=== PATIENT | female | born 1935 ===

== ENCOUNTER 2017-05-13 15:48 | Observation (INO) ==
[2017-05-13 17:04] LABS: Basophils % 0.2 % (0.0-0.8); Eosinophils # 0.1 10*3/uL (0.0-0.87); Eosinophils % 1.2 % (0.00-10.9); Hematocrit 33.9 VOL% (35.7-47.0); Hemoglobin 11.2 GM/DL (12.0-16.0); Immature Granulocytes % 0.4 %; Immature Granulocytes Absolute 0.04 #; Lymphocytes % 22.1 % (21.3-54.2); Mean Corpuscular Hemoglobin 32 PG (27-34); Mean Corpuscular Volume 95.2 FL (87-102); Mean Platelet Volume 9.1 FL (9.6-12.0); Monocytes # 0.5 10*3/uL (0.11-0.8); Monocytes % 5.8 % (1.7-12.7); Neutrophils # 6.4 10*3/uL (1.4-7.4); Neutrophils % 70.3 % (38.7-73.9); Platelet Count 185 T/CUMM (130-400); Red Blood Count 3.56 MC/CUMM (3.8-5.5); Red Cell Distribution Width 13.2 % (9.3-17.3); White Blood Count 9.1 T/CUMM (4-12)
[2017-05-13 17:18] LABS: PT Patient Result 10.2 SECS; Partial Thromboplastin Time 25.2 SECS (0-40)
[2017-05-13 17:35] LABS: Alanine Aminotransferase 23 U/L (13-56); Albumin 3.2 G/DL (3.4-5.0); Alkaline Phosphatase 76 U/L (45-117); Aspartate Amino Transferase 17 U/L (0-37); Bilirubin,Total < 0.39 MG/DL (0.2-1.0); Blood Urea Nitrogen 19 MG/DL (7-18); Calcium 8.7 MG/DL (8.5-10.1); Glucose 115 MG/DL (74-106); Osmolality,Calculated 275.8 MOS/KG (273-304); Potassium 4.3 MMOL/L (3.5-5.1); Sodium 137 MMOL/L (136-145); Total Protein 6.3 G/DL (6.4-8.3); Troponin I Only < 0.015 NG/ML (0.00-0.045)
[2017-05-13] MEDS ORDERED: LIDOCAINE 5% PATCH TRANSDERM PRN (18:23)
[2017-05-13] MEDS ORDERED: NITROGLYCERIN SL 0.4 MG TABLET SL PRN (18:23)
[2017-05-13] MEDS ORDERED: FLAVOXATE PO PRN (18:23)
[2017-05-13] MEDS ORDERED: oxyCODONE ER 10 MG TABLET PO PRN (18:23)
[2017-05-13] MEDS ORDERED: MAGNESIUM SULF RIDER 2 GM in PREMIX 1 EACH IV PRN (18:27)
[2017-05-13] MEDS ORDERED: POTASSIUM CHLORIDE 20 MEQ TABLET PO PRN (18:27)
[2017-05-13] MEDS ORDERED: ERGOCALCIFEROL 50,000 UNIT CAPSULE PO SCH (18:30)
[2017-05-13] MEDS ORDERED: DEXTROSE 50% 25 GM/50 ML VIAL IV PRN (18:32)
[2017-05-13] MEDS ORDERED: GLUCAGON 1 MG VIAL IM PRN (18:32)
[2017-05-13 19:12] LABS: Risk Ratio 2.35; VLDL CHOLESTEROL 27.4 MG/DL
[2017-05-13] MEDS ORDERED: PNEUMOCOCCAL VACCINE (13 VALENT) 0.5 ML SYRINGE IM ONE (19:42)
[2017-05-13] MEDS ORDERED: INFLUENZA VIRUS VACCINE 0.5 ML SYRINGE IM ONE (19:42)
[2017-05-13] MEDS: ENOXAPARIN 100 MG/ML SYRINGE SUBCUT SCH (22:16)
[2017-05-13] MEDS: oxyCODONE/ACETAMINOPHEN 5-325 MG TABLET PO PRN (22:16)
[2017-05-13] MEDS: PRAMIPEXOLE 0.25 MG TABLET PO SCH (22:20)
[2017-05-13] MEDS: INSULIN LISPRO 100 UNIT/ML SUBCUT SCH (22:20)
[2017-05-13] MEDS: FUROSEMIDE 40 MG TABLET PO SCH (22:20)
[2017-05-13] MEDS: PREGABALIN 50 MG CAPSULE PO SCH (22:20)
[2017-05-13] MEDS: VENLAFAXINE XR 75 MG CAPSULE PO SCH (22:20)
[2017-05-13] MEDS: tiZANidine 4 MG TABLET PO SCH (22:21)
[2017-05-13] MEDS: METOPROLOL SUCCINATE XL 100 MG TABLET PO SCH (22:21)
[2017-05-14 03:18] LABS: Albumin 3.1 G/DL (3.4-5.0); Bilirubin,Total 0.5 MG/DL (0.2-1.0); Calcium 8.4 MG/DL (8.5-10.1); Osmolality,Calculated 284.3 MOS/KG (273-304); Potassium 3.7 MMOL/L (3.5-5.1); Total Protein 5.6 G/DL (6.4-8.3)
[2017-05-14 03:22] LABS: Basophils % 0.2 % (0.0-0.8); Eosinophils # 0.2 10*3/uL (0.0-0.87); Eosinophils % 1.7 % (0.00-10.9); Hematocrit 32.4 VOL% (35.7-47.0); Hemoglobin 10.8 GM/DL (12.0-16.0); Immature Granulocytes % 0.3 %; Immature Granulocytes Absolute 0.03 #; Lymphocytes # 3.3 10*3/uL (1.4-4.0); Lymphocytes % 36.8 % (21.3-54.2); Mean Corpuscular HGB Conc 33.3 GM/DL (32-36); Mean Corpuscular Hemoglobin 32 PG (27-34); Mean Platelet Volume 9.5 FL (9.6-12.0); Monocytes # 0.8 10*3/uL (0.11-0.8); Neutrophils # 4.6 10*3/uL (1.4-7.4); Platelet Count 186 T/CUMM (130-400); Red Blood Count 3.41 MC/CUMM (3.8-5.5); Red Cell Distribution Width 13.2 % (9.3-17.3); White Blood Count 8.9 T/CUMM (4-12)
[2017-05-14] MEDS: INSULIN LISPRO 100 UNIT/ML SUBCUT SCH ×4 (07:59→21:16)
[2017-05-14] MEDS ORDERED: GUAIFENESIN PO SCH (09:00)
[2017-05-14] MEDS ORDERED: PSEUDOEPHEDRNE HCL PO SCH (09:00)
[2017-05-14] MEDS: ENOXAPARIN 100 MG/ML SYRINGE SUBCUT SCH ×2 (09:37→21:12)
[2017-05-14] MEDS: MULTIVITAMIN (CENTRUM) TABLET PO SCH (12:30)
[2017-05-14] MEDS: LOSARTAN 50 MG TABLET PO SCH (12:30)
[2017-05-14] MEDS: ISOSORBIDE MONONITRATE 30 MG TABLET PO SCH (12:31)
[2017-05-14] MEDS: DOCUSATE SODIUM 100 MG CAPSULE PO SCH (12:31)
[2017-05-14] MEDS: LACTOBACILLUS ACIDOPHILUS/BULGARICUS CAPLET PO SCH (12:31)
[2017-05-14] MEDS: FEXOFENADINE 60 MG TABLET PO SCH (12:31)
[2017-05-14] MEDS: FUROSEMIDE 40 MG TABLET PO SCH ×2 (12:32→21:10)
[2017-05-14] MEDS: ASPIRIN EC 81 MG TABLET PO SCH (12:32)
[2017-05-14] MEDS: PANTOPRAZOLE 40 MG TABLET PO SCH (12:32)
[2017-05-14] MEDS: FAMOTIDINE 20 MG TABLET PO SCH (12:32)
[2017-05-14] MEDS: ATORVASTATIN 40 MG TABLET PO SCH (12:32)
[2017-05-14] MEDS: METOPROLOL SUCCINATE XL 100 MG TABLET PO SCH ×2 (12:32→21:11)
[2017-05-14] MEDS: CLOPIDOGREL 75 MG TABLET PO SCH (12:33)
[2017-05-14] MEDS: BISACODYL 5 MG TABLET PO SCH (12:33)
[2017-05-14] MEDS: PREGABALIN 50 MG CAPSULE PO SCH ×2 (12:37→21:09)
[2017-05-14] MEDS: VENLAFAXINE XR 75 MG CAPSULE PO SCH (21:10)
[2017-05-14] MEDS: tiZANidine 4 MG TABLET PO SCH (21:10)
[2017-05-14] MEDS: PRAMIPEXOLE 0.25 MG TABLET PO SCH (21:11)
[2017-05-15] MEDS: METOPROLOL SUCCINATE XL 100 MG TABLET PO SCH (09:22)
[2017-05-15] MEDS: MULTIVITAMIN (CENTRUM) TABLET PO SCH (09:22)
[2017-05-15] MEDS: FAMOTIDINE 20 MG TABLET PO SCH (09:22)
[2017-05-15] MEDS: LOSARTAN 50 MG TABLET PO SCH (09:22)
[2017-05-15] MEDS: DOCUSATE SODIUM 100 MG CAPSULE PO SCH (09:22)
[2017-05-15] MEDS: LACTOBACILLUS ACIDOPHILUS/BULGARICUS CAPLET PO SCH (09:22)
[2017-05-15] MEDS: CLOPIDOGREL 75 MG TABLET PO SCH (09:23)
[2017-05-15] MEDS: PREGABALIN 50 MG CAPSULE PO SCH (09:23)
[2017-05-15] MEDS: PANTOPRAZOLE 40 MG TABLET PO SCH (09:23)
[2017-05-15] MEDS: ATORVASTATIN 40 MG TABLET PO SCH (09:23)
[2017-05-15] MEDS: FEXOFENADINE 60 MG TABLET PO SCH (09:23)
[2017-05-15] MEDS: ASPIRIN EC 81 MG TABLET PO SCH (09:23)
[2017-05-15] MEDS: BISACODYL 5 MG TABLET PO SCH (09:23)
[2017-05-15] MEDS: ISOSORBIDE MONONITRATE 30 MG TABLET PO SCH (09:23)
[2017-05-15] MEDS: FUROSEMIDE 40 MG TABLET PO SCH (09:23)
[2017-05-15] MEDS: ENOXAPARIN 100 MG/ML SYRINGE SUBCUT SCH (09:24)
[2017-05-15] MEDS: INSULIN LISPRO 100 UNIT/ML SUBCUT SCH ×2 (09:25→12:23)
[2017-05-15] MEDS: oxyCODONE/ACETAMINOPHEN 5-325 MG TABLET PO PRN (09:41)
[2017-05-15 12:31] VITALS: BP 134/59
== END 2017-05-15 13:15 | disposition home or self-care (01) ==
LOC: N.EDINP 15:48 → N.ED 15:48 → SUATTDRO 17:56 → N.TELES 18:49
PROVIDERS: ADMIT Family Medicine; ATTEND Internal Medicine Infectious Disease

== ENCOUNTER 2019-01-06 20:10 | Observation (INO) ==
[2019-01-06 20:53] LABS: Basophils % 0.1 % (0.0-0.8); Eosinophils % 0.3 % (0.00-10.9); Hematocrit 32.7 VOL% (35.7-47.0); Hemoglobin 10.6 GM/DL (12.0-16.0); Immature Granulocytes % 0.4 %; Immature Granulocytes Absolute 0.03 #; Lymphocytes % 14.7 % (21.3-54.2); Mean Corpuscular HGB Conc 32.4 GM/DL (32-36); Mean Corpuscular Volume 97.3 FL (87-102); Monocytes % 5.7 % (1.7-12.7); Neutrophils % 78.8 % (38.7-73.9); Platelet Count 173 T/CUMM (130-400); Red Blood Count 3.36 MC/CUMM (3.8-5.5); Red Cell Distribution Width 13.3 % (9.3-17.3)
[2019-01-06 21:01] LABS: PT Patient Result 10.7 SECS (9.6-12.2); Partial Thromboplastin Time 25.6 SECS (20.8-36.0)
[2019-01-06 21:21] LABS: Alanine Aminotransferase 30 U/L (13-56); Albumin 3.6 G/DL (3.4-5.0); Alkaline Phosphatase 60 U/L (45-117); Aspartate Amino Transferase 27 U/L (0-37); Bilirubin,Total < 0.39 MG/DL (0.2-1.0); Blood Urea Nitrogen 26 MG/DL (7-18); Calcium 8.3 MG/DL (8.5-10.1); Estimated Glom Filtration Rate 30 ML/MIN; Glucose 108 MG/DL (74-106); Osmolality,Calculated 280.7 MOS/KG (273-304)
[2019-01-06] MEDS ORDERED: ALUM/MAG/SIMETH/LIDO VISC 1:1 30 ML BOTTLE PO STA (21:29)
[2019-01-07] MEDS ORDERED: oxyCODONE/ACETAMINOPHEN 5-325 MG TABLET PO STA (00:36)
[2019-01-07] MEDS ORDERED: ALUM/MAG/SIMETH/LIDO VISC 1:1 30 ML BOTTLE PO STA (00:49)
[2019-01-07] MEDS ORDERED: oxyCODONE/ACETAMINOPHEN 5-325 MG TABLET PO PRN (00:57)
[2019-01-07] MEDS ORDERED: tiZANidine 4 MG TABLET PO PRN (01:25)
[2019-01-07] MEDS ORDERED: GLUCAGON 1 MG VIAL IM PRN (01:25)
[2019-01-07] MEDS ORDERED: DEXTROSE 50% 25 GM/50 ML VIAL IV PRN (01:25)
[2019-01-07] MEDS ORDERED: cefTRIAXone 1,000 MG in SYRINGE 1 EACH IV SCH (02:00)
[2019-01-07] MEDS ORDERED: MAGNESIUM SULF RIDER 4 GM in PREMIX 1 EACH IV ONE (02:35)
[2019-01-07] MEDS ORDERED: SODIUM CHLORIDE 0.9% 1,000 ML IV SCH (03:00)
[2019-01-07 04:46] LABS: Basophils % 0.3 % (0.0-0.8); Eosinophils # 0.1 10*3/uL (0.0-0.87); Eosinophils % 0.7 % (0.00-10.9); Hematocrit 32.7 VOL% (35.7-47.0); Hemoglobin 10.7 GM/DL (12.0-16.0); Immature Granulocytes % 0.4 %; Immature Granulocytes Absolute 0.03 #; Lymphocytes # 2.3 10*3/uL (1.4-4.0); Lymphocytes % 31.2 % (21.3-54.2); Mean Corpuscular HGB Conc 32.7 GM/DL (32-36); Mean Corpuscular Volume 96.7 FL (87-102); Mean Platelet Volume 10.1 FL (9.6-12.0); Monocytes % 9.3 % (1.7-12.7); Neutrophils % 58.1 % (38.7-73.9); Platelet Count 177 T/CUMM (130-400); Red Blood Count 3.38 MC/CUMM (3.8-5.5); Red Cell Distribution Width 13.4 % (9.3-17.3); White Blood Count 7.3 T/CUMM (4-12)
[2019-01-07 05:10] LABS: Troponin I < 0.015 NG/ML (0.00-0.045)
[2019-01-07 05:15] LABS: Albumin 3.6 G/DL (3.4-5.0); Bilirubin,Total 0.6 MG/DL (0.2-1.0); Calcium 8.6 MG/DL (8.5-10.1); Osmolality,Calculated 274.8 MOS/KG (273-304); Thyroid Stimulating Hormone 2.26 uIU/ml (0.358-3.74); Total Protein 6.4 G/DL (6.4-8.3)
[2019-01-07] MEDS ORDERED: HYDROXYCHLOROQUINE 200 MG TABLET PO SCH ×2 (09:00→09:30)
[2019-01-07] MEDS ORDERED: METOPROLOL SUCCINATE XL 100 MG TABLET PO SCH ×2 (09:00→09:30)
[2019-01-07] MEDS ORDERED: PANTOPRAZOLE 40 MG TABLET PO SCH ×2 (09:00→09:30)
[2019-01-07] MEDS ORDERED: ASPIRIN EC 81 MG TABLET PO SCH (09:00)
[2019-01-07] MEDS ORDERED: busPIRone 10 MG TABLET PO SCH ×2 (09:00→15:00)
[2019-01-07] MEDS ORDERED: LACTOBACILLUS RHAMNOSUS GG CAPSULE PO SCH (09:00)
[2019-01-07] MEDS ORDERED: ONDANSETRON 4 MG TABLET PO PRN (09:10)
[2019-01-07] MEDS ORDERED: NITROGLYCERIN SL 0.4 MG TABLET SL PRN (09:10)
[2019-01-07] MEDS ORDERED: LIDOCAINE 5% PATCH TRANSDERM PRN (09:10)
[2019-01-07] MEDS ORDERED: CALCIUM (CARBONATE)/VITAMIN D 500 MG-200 UNIT TABLET PO SCH (09:15)
[2019-01-07] MEDS ORDERED: LOSARTAN 50 MG TABLET PO SCH (09:15)
[2019-01-07] MEDS ORDERED: DEXTROMETHORPHAN GUAIFENESIN PO SCH (09:15)
[2019-01-07] MEDS ORDERED: CYANOCOBALAMIN 1000 MCG/1 ML VIAL SUBCUT SCH (09:30)
[2019-01-07] MEDS ORDERED: BISACODYL 5 MG TABLET PO SCH (09:30)
[2019-01-07] MEDS ORDERED: MULTIVITAMIN (CENTRUM) TABLET PO SCH (09:30)
[2019-01-07] MEDS ORDERED: FUROSEMIDE 40 MG TABLET PO SCH (09:30)
[2019-01-07] MEDS ORDERED: SULFAMETHOX/TRIMETHOPRIM 800-160 MG TABLET PO SCH (09:30)
[2019-01-07] MEDS ORDERED: FEXOFENADINE 180 MG TABLET PO SCH (09:30)
[2019-01-07] MEDS ORDERED: PREGABALIN 50 MG CAPSULE PO SCH (09:30)
[2019-01-07] MEDS ORDERED: ISOSORBIDE MONONITRATE 30 MG TABLET PO SCH (09:30)
[2019-01-07] MEDS ORDERED: CLOPIDOGREL 75 MG TABLET PO SCH (09:30)
[2019-01-07] MEDS ORDERED: predniSONE 5 MG TABLET PO SCH (09:30)
[2019-01-07 11:48] LABS: Apearance,Urine CLEAR (Clear); Bacteria,Urine Occasional /HPF (Few); Bilirubin,Urine Negative (Negative); Blood, Urine Negative (Negative); Glucose,Urine (UA) Negative (Negative); Ketones,Urine Negative (Negative); Mucus,Urine Occasional /LPF (Occasional); Nitrite,Urine Negative (Negative); Protein,Urine Negative; RBC,Urine 3 /HPF (0-4); Squamous Epithelial Cell,Urine Occasional /HPF (0-10); Urine Color Yellow (Yellow); Urine Urobilinogen < 2.0 EU/DL (0.2-1.0); WBC,Urine 1 /HPF (0-6)
[2019-01-07 13:43] VITALS: BP 142/126
[2019-01-07] MEDS ORDERED: oxyCODONE/ACETAMINOPHEN 5-325 MG TABLET PO SCH (14:00)
[2019-01-07] MEDS ORDERED: ATORVASTATIN 40 MG TABLET PO SCH ×2 (18:00→21:00)
[2019-01-07] MEDS ORDERED: DOCUSATE SODIUM 100 MG CAPSULE PO SCH (18:00)
[2019-01-07] MEDS ORDERED: PRAMIPEXOLE 0.25 MG TABLET PO SCH (21:00)
[2019-01-07] MEDS ORDERED: VENLAFAXINE XR 75 MG CAPSULE PO SCH (21:00)
[2019-01-08] MEDS ORDERED: MAGNESIUM CHLORIDE 64 MG TABLET PO SCH (09:00)
[2019-01-12] MEDS ORDERED: ERGOCALCIFEROL 50,000 UNIT CAPSULE PO SCH (09:10)
== END 2019-01-07 17:00 | disposition home health service (06) ==
LOC: EDUNIT# → N.ED 20:10 → N.EDINP 20:10 → SUATTDRO 01-07 00:43 → N.2W 01-07 01:12
PROVIDERS: ADMIT Internal Medicine; ATTEND Hospitalist

== ENCOUNTER 2019-04-03 18:10 | Observation (INO) ==
[2019-04-03] MEDS ORDERED: MORPHINE 4 MG/1 ML VIAL IV STA ×2 (18:59→19:49)
[2019-04-03] MEDS ORDERED: ONDANSETRON 4 MG/2 ML VIAL IV STA (18:59)
[2019-04-03] MEDS ORDERED: ASPIRIN 325 MG TABLET PO STA (18:59)
[2019-04-03 19:08] LABS: Basophils # 0.1 10*3/uL (0.0-0.2); Basophils % 0.6 % (0.0-0.8); Eosinophils # 0.1 10*3/uL (0.0-0.87); Eosinophils % 1.7 % (0.00-10.9); Hematocrit 34.9 VOL% (35.7-47.0); Hemoglobin 11.4 GM/DL (12.0-16.0); Immature Granulocytes % 0.2 %; Immature Granulocytes Absolute 0.02 #; Lymphocytes # 1.4 10*3/uL (1.4-4.0); Mean Corpuscular HGB Conc 32.7 GM/DL (32-36); Mean Corpuscular Volume 95.6 FL (87-102); Neutrophils % 73.5 % (38.7-73.9); Platelet Count 185 T/CUMM (130-400); Red Blood Count 3.65 MC/CUMM (3.8-5.5); Red Cell Distribution Width 13.4 % (9.3-17.3); White Blood Count 8.3 T/CUMM (4-12)
[2019-04-03 19:21] LABS: PT Patient Result 10.4 SECS (9.6-12.2)
[2019-04-03 19:23] LABS: Albumin 3.4 G/DL (3.4-5.0); Bilirubin,Total 0.4 MG/DL (0.2-1.0); Calcium 8.9 MG/DL (8.5-10.1); Osmolality,Calculated 277.8 MOS/KG (273-304); Total Protein 6.7 G/DL (6.4-8.3)
[2019-04-03 19:28] LABS: Apearance,Urine CLOUDY (Clear); Bacteria,Urine Many /HPF (Few); Bilirubin,Urine Negative (Negative); Blood, Urine Small mg/dL (Negative); Glucose,Urine (UA) Negative (Negative); Hyaline Casts,Urine 21 /LPF (0-3); Ketones,Urine Negative (Negative); Mucus,Urine Occasional /LPF (Occasional); Nitrite,Urine Positive (Negative); Protein,Urine Negative; RBC,Urine 11 /HPF (0-4); Squamous Epithelial Cell,Urine Occasional /HPF (0-10); Transitional Epi Cells,Urine Occasional /HPF (<1); Urine Color Yellow (Yellow); Urine Specific Gravity 1.008 (1.001-1.035); Urine Urobilinogen < 2.0 EU/DL (0.2-1.0); WBC,Urine 438 /HPF (0-6)
[2019-04-03] MEDS ORDERED: MAGNESIUM SULF RIDER 2 GM in PREMIX 1 EACH IV STA (19:32)
[2019-04-03] MEDS ORDERED: cefTRIAXone 1,000 MG in SODIUM CHLORIDE 0.9% 100 ML IV STA (19:32)
[2019-04-03] MEDS ORDERED: MAGNESIUM SULF RIDER 50 ML IV ONE (19:33)
[2019-04-03] MEDS ORDERED: cefTRIAXone 1,000 MG VIAL ONE (19:33)
[2019-04-03] MEDS ORDERED: MAGNESIUM SULF RIDER 2 GM in PREMIX 1 EACH IV PRN (22:02)
[2019-04-03] MEDS ORDERED: DOCUSATE SODIUM 100 MG CAPSULE PO PRN (22:02)
[2019-04-03] MEDS ORDERED: MAGNESIUM SULF RIDER 4 GM in PREMIX 1 EACH IV PRN (22:02)
[2019-04-03] MEDS ORDERED: ONDANSETRON 4 MG/2 ML VIAL IV PRN (22:02)
[2019-04-03] MEDS ORDERED: ACETAMINOPHEN 325 MG TABLET PO PRN (22:02)
[2019-04-03] MEDS ORDERED: NITROGLYCERIN SL 0.4 MG TABLET SL PRN (22:02)
[2019-04-03] MEDS ORDERED: SODIUM CHLORIDE 0.9% 1,000 ML IV SCH (22:02)
[2019-04-03] MEDS: ENOXAPARIN 40 MG/0.4 ML SYRINGE SUBCUT SCH (22:46)
[2019-04-03] MEDS: MORPHINE 4 MG/1 ML VIAL IV PRN (23:39)
[2019-04-04 01:40] LABS: Basophils % 0.4 % (0.0-0.8); Eosinophils # 0.1 10*3/uL (0.0-0.87); Eosinophils % 1.7 % (0.00-10.9); Hematocrit 33.6 VOL% (35.7-47.0); Hemoglobin 11.1 GM/DL (12.0-16.0); Immature Granulocytes % 0.3 %; Immature Granulocytes Absolute 0.02 #; Lymphocytes # 2.1 10*3/uL (1.4-4.0); Lymphocytes % 29.9 % (21.3-54.2); Mean Platelet Volume 9.7 FL (9.6-12.0); Monocytes % 8.1 % (1.7-12.7); Neutrophils % 59.6 % (38.7-73.9); Platelet Count 176 T/CUMM (130-400); Red Cell Distribution Width 13.5 % (9.3-17.3); White Blood Count 7.1 T/CUMM (4-12)
[2019-04-04 02:20] LABS: Calcium 8.8 MG/DL (8.5-10.1); Osmolality,Calculated 281.7 MOS/KG (273-304); Risk Ratio 2.6; Thyroid Stimulating Hormone 1.32 uIU/ml (0.358-3.74)
[2019-04-04] MEDS: MORPHINE 4 MG/1 ML VIAL IV PRN (05:13)
[2019-04-04] MEDS: PANTOPRAZOLE 40 MG TABLET PO SCH ×2 (07:51→09:11)
[2019-04-04] MEDS: METOPROLOL SUCCINATE XL 100 MG TABLET PO SCH ×2 (12:47→20:23)
[2019-04-04] MEDS: ASPIRIN EC 81 MG TABLET PO SCH (12:47)
[2019-04-04] MEDS: LOSARTAN 50 MG TABLET PO SCH (12:48)
[2019-04-04] MEDS: ISOSORBIDE MONONITRATE 30 MG TABLET PO SCH (12:48)
[2019-04-04] MEDS: FUROSEMIDE 40 MG TABLET PO SCH (12:48)
[2019-04-04] MEDS: LIDOCAINE 5% PATCH TRANSDERM SCH (17:03)
[2019-04-04] MEDS: ATORVASTATIN 40 MG TABLET PO SCH (18:30)
[2019-04-04] MEDS ORDERED: tiZANidine 4 MG TABLET PO PRN (18:47)
[2019-04-04] MEDS: OMEGA 3 ACID ETHYL ESTERS 1 GM CAPSULE PO SCH (20:23)
[2019-04-04] MEDS: PREGABALIN 50 MG CAPSULE PO SCH (20:23)
[2019-04-04] MEDS: VENLAFAXINE 100 MG TABLET PO SCH (20:23)
[2019-04-04] MEDS: ENOXAPARIN 40 MG/0.4 ML SYRINGE SUBCUT SCH (20:23)
[2019-04-04] MEDS: PRAMIPEXOLE 0.25 MG TABLET PO SCH (20:24)
[2019-04-04] MEDS ORDERED: cefTRIAXone 1,000 MG in SYRINGE 1 EACH IV SCH (21:00)
[2019-04-05] MEDS: PREGABALIN 50 MG CAPSULE PO SCH ×2 (09:03→20:43)
[2019-04-05] MEDS: CLOPIDOGREL 75 MG TABLET PO SCH (09:04)
[2019-04-05] MEDS: ISOSORBIDE MONONITRATE 30 MG TABLET PO SCH (09:04)
[2019-04-05] MEDS: METOPROLOL SUCCINATE XL 100 MG TABLET PO SCH ×2 (09:04→20:43)
[2019-04-05] MEDS: LOSARTAN 50 MG TABLET PO SCH (09:04)
[2019-04-05] MEDS: ASPIRIN EC 81 MG TABLET PO SCH (09:05)
[2019-04-05] MEDS: OMEGA 3 ACID ETHYL ESTERS 1 GM CAPSULE PO SCH ×2 (09:05→20:43)
[2019-04-05] MEDS: FUROSEMIDE 40 MG TABLET PO SCH (09:05)
[2019-04-05] MEDS: PANTOPRAZOLE 40 MG TABLET PO SCH ×3 (09:05→20:43)
[2019-04-05] MEDS: LIDOCAINE 5% PATCH TRANSDERM SCH (11:41)
[2019-04-05] MEDS ORDERED: oxyCODONE/ACETAMINOPHEN 5-325 MG TABLET PO PRN (11:47)
[2019-04-05] MEDS: MORPHINE 4 MG/1 ML VIAL IV PRN (12:16)
[2019-04-05] MEDS ORDERED: LIDOCAINE 5% PATCH TRANSDERM PRN (12:27)
[2019-04-05] MEDS: KETOROLAC 15 MG/1 ML VIAL IV SCH ×2 (14:29→20:43)
[2019-04-05] MEDS: LEVOFLOXACIN 250 MG TABLET PO SCH (16:55)
[2019-04-05] MEDS: ATORVASTATIN 40 MG TABLET PO SCH (16:59)
[2019-04-05] MEDS: PRAMIPEXOLE 0.25 MG TABLET PO SCH (20:42)
[2019-04-05] MEDS: ENOXAPARIN 40 MG/0.4 ML SYRINGE SUBCUT SCH (20:42)
[2019-04-05] MEDS: HYDROXYCHLOROQUINE 200 MG TABLET PO SCH (20:43)
[2019-04-05] MEDS: VENLAFAXINE 100 MG TABLET PO SCH (20:43)
[2019-04-06] MEDS: KETOROLAC 15 MG/1 ML VIAL IV SCH ×2 (04:10→12:10)
[2019-04-06] MEDS ORDERED: predniSONE 5 MG TABLET PO SCH (07:30)
[2019-04-06] MEDS ORDERED: BETAMETH SODIUM PHOS/ACETATE 30 MG/5 ML VIAL INTRAARTIC ONE (07:32)
[2019-04-06] MEDS ORDERED: BUPIVACAINE 0.5% 50 ML VIAL MISC INJ ONE (07:33)
[2019-04-06] MEDS: CLOPIDOGREL 75 MG TABLET PO SCH (08:57)
[2019-04-06] MEDS: ASPIRIN EC 81 MG TABLET PO SCH (08:57)
[2019-04-06] MEDS: OMEGA 3 ACID ETHYL ESTERS 1 GM CAPSULE PO SCH (08:57)
[2019-04-06] MEDS: HYDROXYCHLOROQUINE 200 MG TABLET PO SCH (08:57)
[2019-04-06] MEDS: FUROSEMIDE 40 MG TABLET PO SCH (08:57)
[2019-04-06] MEDS: ISOSORBIDE MONONITRATE 30 MG TABLET PO SCH (08:57)
[2019-04-06] MEDS: LIDOCAINE 5% PATCH TRANSDERM SCH (08:58)
[2019-04-06] MEDS: LOSARTAN 50 MG TABLET PO SCH (08:58)
[2019-04-06] MEDS: LEVOFLOXACIN 250 MG TABLET PO SCH (08:58)
[2019-04-06] MEDS: PREGABALIN 50 MG CAPSULE PO SCH (08:58)
[2019-04-06] MEDS: METOPROLOL SUCCINATE XL 100 MG TABLET PO SCH (08:58)
[2019-04-06] MEDS: PANTOPRAZOLE 40 MG TABLET PO SCH ×2 (09:01)
[2019-04-06] MEDS: MORPHINE 4 MG/1 ML VIAL IV PRN (09:06)
[2019-04-06] MEDS: ATORVASTATIN 40 MG TABLET PO SCH (17:20)
[2019-04-06 18:18] VITALS: BP 131/55
== END 2019-04-06 18:44 | disposition home health service (06) ==
LOC: EDBD → EDUNIT# → N.ED 18:10 → N.EDINP 18:10 → SUATTDRO 20:24 → N.3E 21:19
PROVIDERS: ADMIT Hospitalist; ATTEND Internal Medicine

== ENCOUNTER 2019-06-25 11:44 | Inpatient (IN) ==
[2019-06-25 12:41] LABS: Basophils # 0.1 10*3/uL (0.0-0.2); Basophils % 0.5 % (0.0-0.8); Eosinophils # 0.3 10*3/uL (0.0-0.87); Eosinophils % 2.8 % (0.00-10.9); Hematocrit 34.9 VOL% (35.7-47.0); Immature Granulocytes % 0.3 %; Immature Granulocytes Absolute 0.03 #; Lymphocytes % 21.2 % (21.3-54.2); Mean Corpuscular HGB Conc 31.5 GM/DL (32-36); Mean Corpuscular Volume 96.1 FL (87-102); Mean Platelet Volume 9.6 FL (9.6-12.0); Monocytes % 8.1 % (1.7-12.7); Neutrophils % 67.1 % (38.7-73.9); Platelet Count 229 T/CUMM (130-400); Red Blood Count 3.63 MC/CUMM (3.8-5.5); White Blood Count 9.4 T/CUMM (4-12)
[2019-06-25 12:53] LABS: PT Patient Result 10.9 SECS (9.8-11.9)
[2019-06-25 12:55] LABS: Albumin 3.4 G/DL (3.4-5.0); Bilirubin,Total 0.5 MG/DL (0.2-1.0); Calcium 9.7 MG/DL (8.5-10.1); Osmolality,Calculated 279.5 MOS/KG (273-304); Total Protein 7.2 G/DL (6.4-8.3)
[2019-06-25] MEDS ORDERED: MORPHINE 4 MG/1 ML VIAL ONE (13:44)
[2019-06-25] MEDS ORDERED: MORPHINE 4 MG/1 ML VIAL IV STA (13:47)
[2019-06-25] MEDS ORDERED: LIDOCAINE 5% PATCH TRANSDERM PRN (14:54)
[2019-06-25] MEDS ORDERED: NITROGLYCERIN SL 0.4 MG TABLET SL PRN (14:54)
[2019-06-25] MEDS ORDERED: tiZANidine 4 MG TABLET PO PRN (14:54)
[2019-06-25] MEDS ORDERED: ONDANSETRON 4 MG TABLET PO PRN (14:54)
[2019-06-25] MEDS ORDERED: predniSONE 5 MG TABLET PO PRN (14:54)
[2019-06-25] MEDS ORDERED: POLYETHYLENE GLYCOL POWDER 17 GM PACK PO PRN (14:54)
[2019-06-25] MEDS ORDERED: CYANOCOBALAMIN 1000 MCG/1 ML VIAL IM SCH (15:00)
[2019-06-25] MEDS ORDERED: GLUCAGON 1 MG VIAL IM PRN (15:20)
[2019-06-25] MEDS ORDERED: DEXTROSE 10% 250 ML BAG IV PRN (15:20)
[2019-06-25] MEDS ORDERED: ONDANSETRON 4 MG/2 ML VIAL IV PRN (15:20)
[2019-06-25] MEDS ORDERED: ACETAMINOPHEN 325 MG TABLET PO PRN (15:20)
[2019-06-25] MEDS ORDERED: ENOXAPARIN 30 MG/0.3 ML SYRINGE SUBCUT SCH (15:30)
[2019-06-25] MEDS: DOCUSATE SODIUM 100 MG CAPSULE PO SCH (17:59)
[2019-06-25] MEDS: INDOMETHACIN 25 MG CAPSULE PO SCH ×2 (17:59→20:37)
[2019-06-25] MEDS: ENOXAPARIN 100 MG/ML SYRINGE SUBCUT SCH (18:00)
[2019-06-25] MEDS: ATORVASTATIN 40 MG TABLET PO SCH (18:00)
[2019-06-25] MEDS: VENLAFAXINE 100 MG TABLET PO SCH (20:36)
[2019-06-25] MEDS: PRAMIPEXOLE 0.25 MG TABLET PO SCH (20:37)
[2019-06-25] MEDS: METOPROLOL SUCCINATE XL 100 MG TABLET PO SCH (20:37)
[2019-06-25] MEDS: PANTOPRAZOLE 40 MG TABLET PO SCH (20:37)
[2019-06-25] MEDS: PREGABALIN 75 MG CAPSULE PO SCH (20:37)
[2019-06-25] MEDS: CALCIUM (CARBONATE)/VITAMIN D 600 MG-400 UNIT TABLET PO SCH (20:37)
[2019-06-26] MEDS: oxyCODONE/ACETAMINOPHEN 5-325 MG TABLET PO PRN ×2 (00:36→21:02)
[2019-06-26] MEDS: ENOXAPARIN 100 MG/ML SYRINGE SUBCUT SCH ×2 (03:58→15:39)
[2019-06-26 06:31] LABS: Basophils % 0.5 % (0.0-0.8); Eosinophils # 0.2 10*3/uL (0.0-0.87); Hematocrit 34.2 VOL% (35.7-47.0); Hemoglobin 10.5 GM/DL (12.0-16.0); Immature Granulocytes % 0.5 %; Immature Granulocytes Absolute 0.03 #; Lymphocytes # 1.8 10*3/uL (1.4-4.0); Lymphocytes % 32.7 % (21.3-54.2); Mean Corpuscular HGB Conc 30.7 GM/DL (32-36); Mean Corpuscular Volume 100.9 FL (87-102); Mean Platelet Volume 9.7 FL (9.6-12.0); Neutrophils % 51.3 % (38.7-73.9); Platelet Count 231 T/CUMM (130-400); Red Blood Count 3.39 MC/CUMM (3.8-5.5); Red Cell Distribution Width 14.1 % (9.3-17.3); White Blood Count 5.6 T/CUMM (4-12)
[2019-06-26 06:49] LABS: Bilirubin,Total 0.5 MG/DL (0.2-1.0); Calcium 9.3 MG/DL (8.5-10.1); Osmolality,Calculated 276.7 MOS/KG (273-304); Total Protein 6.4 G/DL (6.4-8.3)
[2019-06-26] MEDS: FUROSEMIDE 40 MG/4 ML VIAL IV SCH ×2 (08:46→17:28)
[2019-06-26] MEDS ORDERED: FUROSEMIDE 40 MG TABLET PO SCH (09:00)
[2019-06-26] MEDS ORDERED: ISOSORBIDE MONONITRATE 30 MG TABLET PO SCH (09:00)
[2019-06-26] MEDS: PREGABALIN 75 MG CAPSULE PO SCH ×2 (09:25→21:03)
[2019-06-26] MEDS: LOSARTAN 50 MG TABLET PO SCH (09:25)
[2019-06-26] MEDS: CLOPIDOGREL 75 MG TABLET PO SCH (09:25)
[2019-06-26] MEDS: guaiFENesin/DM ER 600-30 MG TABLET PO SCH (09:25)
[2019-06-26] MEDS: MULTIVITAMIN (CENTRUM) TABLET PO SCH (09:25)
[2019-06-26] MEDS: ISOSORBIDE MONONITRATE 60 MG TABLET PO SCH (09:25)
[2019-06-26] MEDS: LACTOBACILLUS RHAMNOSUS GG CAPSULE PO SCH (09:25)
[2019-06-26] MEDS: CALCIUM (CARBONATE)/VITAMIN D 600 MG-400 UNIT TABLET PO SCH ×2 (09:26→21:04)
[2019-06-26] MEDS: DILTIAZEM CD 120 MG CAPSULE PO SCH ×2 (09:26→21:04)
[2019-06-26] MEDS: INDOMETHACIN 25 MG CAPSULE PO SCH ×3 (09:26→21:04)
[2019-06-26] MEDS: METOPROLOL SUCCINATE XL 100 MG TABLET PO SCH ×2 (09:26→21:04)
[2019-06-26] MEDS: FEXOFENADINE 180 MG TABLET PO SCH (09:26)
[2019-06-26] MEDS: ASPIRIN EC 81 MG TABLET PO SCH (09:26)
[2019-06-26] MEDS: PANTOPRAZOLE 40 MG TABLET PO SCH ×2 (09:28→21:04)
[2019-06-26] MEDS: DOCUSATE SODIUM 100 MG CAPSULE PO SCH (17:31)
[2019-06-26] MEDS: ATORVASTATIN 40 MG TABLET PO SCH (17:31)
[2019-06-26] MEDS: PRAMIPEXOLE 0.25 MG TABLET PO SCH (21:03)
[2019-06-26] MEDS: VENLAFAXINE 100 MG TABLET PO SCH (21:04)
[2019-06-27] MEDS: ENOXAPARIN 100 MG/ML SYRINGE SUBCUT SCH (03:28)
[2019-06-27 07:21] LABS: Basophils % 0.5 % (0.0-0.8); Eosinophils # 0.2 10*3/uL (0.0-0.87); Eosinophils % 3.2 % (0.00-10.9); Hematocrit 33.1 VOL% (35.7-47.0); Hemoglobin 10.4 GM/DL (12.0-16.0); Immature Granulocytes % 0.5 %; Immature Granulocytes Absolute 0.03 #; Lymphocytes # 1.7 10*3/uL (1.4-4.0); Lymphocytes % 25.5 % (21.3-54.2); Mean Corpuscular HGB Conc 31.4 GM/DL (32-36); Mean Corpuscular Volume 97.1 FL (87-102); Mean Platelet Volume 9.8 FL (9.6-12.0); Monocytes % 8.8 % (1.7-12.7); Neutrophils % 61.5 % (38.7-73.9); Platelet Count 222 T/CUMM (130-400); Red Blood Count 3.41 MC/CUMM (3.8-5.5); Red Cell Distribution Width 14.2 % (9.3-17.3); White Blood Count 6.6 T/CUMM (4-12)
[2019-06-27 07:51] LABS: Calcium 9.3 MG/DL (8.5-10.1); Osmolality,Calculated 277.8 MOS/KG (273-304)
[2019-06-27] MEDS: ISOSORBIDE MONONITRATE 60 MG TABLET PO SCH (08:59)
[2019-06-27] MEDS: LACTOBACILLUS RHAMNOSUS GG CAPSULE PO SCH (08:59)
[2019-06-27] MEDS: MULTIVITAMIN (CENTRUM) TABLET PO SCH (08:59)
[2019-06-27] MEDS: guaiFENesin/DM ER 600-30 MG TABLET PO SCH (09:00)
[2019-06-27] MEDS: DILTIAZEM CD 120 MG CAPSULE PO SCH ×2 (09:00→21:04)
[2019-06-27] MEDS: METOPROLOL SUCCINATE XL 100 MG TABLET PO SCH ×2 (09:00→21:04)
[2019-06-27] MEDS: PANTOPRAZOLE 40 MG TABLET PO SCH ×2 (09:00→21:04)
[2019-06-27] MEDS: ASPIRIN EC 81 MG TABLET PO SCH (09:00)
[2019-06-27] MEDS: FEXOFENADINE 180 MG TABLET PO SCH (09:00)
[2019-06-27] MEDS: CALCIUM (CARBONATE)/VITAMIN D 600 MG-400 UNIT TABLET PO SCH ×2 (09:00→21:04)
[2019-06-27] MEDS: LOSARTAN 50 MG TABLET PO SCH (09:00)
[2019-06-27] MEDS: INDOMETHACIN 25 MG CAPSULE PO SCH ×3 (09:01→21:04)
[2019-06-27] MEDS: PREGABALIN 75 MG CAPSULE PO SCH ×2 (09:01→21:04)
[2019-06-27] MEDS: CLOPIDOGREL 75 MG TABLET PO SCH (09:01)
[2019-06-27] MEDS: FUROSEMIDE 40 MG/4 ML VIAL IV SCH (09:01)
[2019-06-27] MEDS: DOCUSATE SODIUM 100 MG CAPSULE PO SCH (17:34)
[2019-06-27] MEDS: ATORVASTATIN 40 MG TABLET PO SCH (17:34)
[2019-06-27] MEDS: VENLAFAXINE 100 MG TABLET PO SCH (21:04)
[2019-06-27] MEDS: PRAMIPEXOLE 0.25 MG TABLET PO SCH (21:04)
[2019-06-28 06:19] LABS: Calcium 9.6 MG/DL (8.5-10.1); Osmolality,Calculated 279.8 MOS/KG (273-304)
[2019-06-28] MEDS: SODIUM CHLORIDE 0.9% 1,000 ML IV SCH (08:50)
[2019-06-28] MEDS: ISOSORBIDE MONONITRATE 60 MG TABLET PO SCH (08:51)
[2019-06-28] MEDS: PANTOPRAZOLE 40 MG TABLET PO SCH ×2 (08:51→21:05)
[2019-06-28] MEDS: CALCIUM (CARBONATE)/VITAMIN D 600 MG-400 UNIT TABLET PO SCH ×2 (08:51→21:05)
[2019-06-28] MEDS: PREGABALIN 75 MG CAPSULE PO SCH ×2 (08:51→21:05)
[2019-06-28] MEDS: oxyCODONE/ACETAMINOPHEN 5-325 MG TABLET PO PRN ×2 (08:51→21:04)
[2019-06-28] MEDS: MULTIVITAMIN (CENTRUM) TABLET PO SCH (08:51)
[2019-06-28] MEDS: ASPIRIN EC 81 MG TABLET PO SCH (08:51)
[2019-06-28] MEDS: FEXOFENADINE 180 MG TABLET PO SCH (08:52)
[2019-06-28] MEDS: CLOPIDOGREL 75 MG TABLET PO SCH (08:52)
[2019-06-28] MEDS: ENOXAPARIN 30 MG/0.3 ML SYRINGE SUBCUT SCH (08:52)
[2019-06-28] MEDS: DILTIAZEM CD 120 MG CAPSULE PO SCH ×2 (08:52→21:04)
[2019-06-28] MEDS: LACTOBACILLUS RHAMNOSUS GG CAPSULE PO SCH (08:52)
[2019-06-28] MEDS: guaiFENesin/DM ER 600-30 MG TABLET PO SCH (08:52)
[2019-06-28] MEDS: METOPROLOL SUCCINATE XL 100 MG TABLET PO SCH ×2 (08:52→21:05)
[2019-06-28] MEDS: DOCUSATE SODIUM 100 MG CAPSULE PO SCH (17:57)
[2019-06-28] MEDS: ATORVASTATIN 40 MG TABLET PO SCH (17:57)
[2019-06-28] MEDS: PRAMIPEXOLE 0.25 MG TABLET PO SCH (21:04)
[2019-06-28] MEDS: VENLAFAXINE 100 MG TABLET PO SCH (21:05)
[2019-06-29] MEDS: SODIUM CHLORIDE 0.9% 1,000 ML IV SCH ×2 (04:01→07:14)
[2019-06-29 07:54] LABS: Calcium 9.8 MG/DL (8.5-10.1); Osmolality,Calculated 278.7 MOS/KG (273-304)
[2019-06-29] MEDS ORDERED: ERGOCALCIFEROL 50,000 UNIT CAPSULE PO SCH (09:00)
[2019-06-29] MEDS ORDERED: TUBERCULIN SKIN TEST 0.1 ML SYRINGE INTRADERM ONE (09:16)
[2019-06-29] MEDS: guaiFENesin/DM ER 600-30 MG TABLET PO SCH (09:22)
[2019-06-29] MEDS: MULTIVITAMIN (CENTRUM) TABLET PO SCH (09:22)
[2019-06-29] MEDS: DILTIAZEM CD 120 MG CAPSULE PO SCH (09:22)
[2019-06-29] MEDS: ASPIRIN EC 81 MG TABLET PO SCH (09:22)
[2019-06-29] MEDS: PREGABALIN 75 MG CAPSULE PO SCH (09:23)
[2019-06-29] MEDS: oxyCODONE/ACETAMINOPHEN 5-325 MG TABLET PO PRN (09:23)
[2019-06-29] MEDS: METOPROLOL SUCCINATE XL 100 MG TABLET PO SCH (09:24)
[2019-06-29] MEDS: CALCIUM (CARBONATE)/VITAMIN D 600 MG-400 UNIT TABLET PO SCH (09:24)
[2019-06-29] MEDS: ENOXAPARIN 30 MG/0.3 ML SYRINGE SUBCUT SCH (09:24)
[2019-06-29] MEDS: CLOPIDOGREL 75 MG TABLET PO SCH (09:24)
[2019-06-29] MEDS: ISOSORBIDE MONONITRATE 60 MG TABLET PO SCH (09:24)
[2019-06-29] MEDS: PANTOPRAZOLE 40 MG TABLET PO SCH (09:24)
[2019-06-29] MEDS: FEXOFENADINE 180 MG TABLET PO SCH (09:24)
[2019-06-29] MEDS: LACTOBACILLUS RHAMNOSUS GG CAPSULE PO SCH (09:24)
[2019-06-29] MEDS ORDERED: AZITHROMYCIN 250 MG TABLET PO ONE (11:18)
[2019-06-29 13:51] VITALS: BP 124/65
[2019-06-30] MEDS ORDERED: AZITHROMYCIN 250 MG TABLET PO SCH (09:00)
== END 2019-06-29 14:46 | DRG 291 ==
LOC: EDUNIT# → EDBD → N.ED 11:44 → N.EDINP 11:44 → N.TELEN 15:51 → SUATTDRO 06-27 15:24
PROVIDERS: ADMIT Internal Medicine; ATTEND Internal Medicine

== ENCOUNTER 2019-07-03 18:29 | Inpatient (IN) ==
[2019-07-03] MEDS ORDERED: DOPamine 800 MG/250 ML PREMIX IV ONE (19:00)
[2019-07-03 19:25] LABS: Basophils % 0.1 % (0.0-0.8); Eosinophils % 0.1 % (0.00-10.9); Hemoglobin 9.6 GM/DL (12.0-16.0); Immature Granulocytes % 0.5 %; Immature Granulocytes Absolute 0.04 #; Lymphocytes # 1.1 10*3/uL (1.4-4.0); Lymphocytes % 13.3 % (21.3-54.2); Mean Corpuscular Volume 97.4 FL (87-102); Mean Platelet Volume 10.5 FL (9.6-12.0); Monocytes % 6.6 % (1.7-12.7); NRBC # 0.02 10*3/uL; Neutrophils % 79.4 % (38.7-73.9); Platelet Count 227 T/CUMM (130-400); Red Blood Count 3.08 MC/CUMM (3.8-5.5); Red Cell Distribution Width 14.7 % (9.3-17.3); White Blood Count 8.5 T/CUMM (4-12)
[2019-07-03 19:34] LABS: INR 1.2; PT Patient Result 12.9 SECS (9.8-11.9)
[2019-07-03] MEDS ORDERED: ETOMIDATE 20 MG/10 ML VIAL IV ONE (19:40)
[2019-07-03] MEDS ORDERED: ROCURONIUM 100 MG/10 ML VIAL IV ONE (19:41)
[2019-07-03] MEDS ORDERED: ONDANSETRON 4 MG/2 ML VIAL ONE ×2 (19:42→20:08)
[2019-07-03 19:49] LABS: Albumin 2.4 G/DL (3.4-5.0); Bilirubin,Total 1.5 MG/DL (0.2-1.0); Calcium 8.6 MG/DL (8.5-10.1); Osmolality,Calculated 280.7 MOS/KG (273-304)
[2019-07-03 19:54] LABS: ABG Base Excess -7.5 MMOL/L (-2.5-2.5); ABG HCO3 18.3 MMOL/L (20-26); ABG Oxygen Saturation 97.7 % (95-100); ABG PCO2 43.1 MM HG (35-48); ABG PH 7.259 (7.35-7.45); ABG TCO2 17.8 MMOL/L (23-27)
[2019-07-03 20:13] LABS: Band Neutrophils 5 % (0-10); Lymphocytes 16 % (20-55); Microcytosis 1+; Polychromasia 1+; Segmented Neutrophils 70 % (50-85); Total Cells Counted 100
[2019-07-03 20:14] LABS: Elliptocytes Few; Giant Platelets Few; Platelet Estimate Adequate; Smudge Cells Few
[2019-07-03] MEDS: DOPamine 800 MG/250 ML PREMIX IV PRN (20:19)
[2019-07-03] MEDS ORDERED: ONDANSETRON 4 MG/2 ML VIAL IV STA ×3 (20:21→20:26)
[2019-07-03] MEDS ORDERED: SODIUM CHLORIDE 0.9% 1,000 ML IV STA (21:11)
[2019-07-03] MEDS ORDERED: DEXTROSE 50% 25 GM/50 ML VIAL IV PRN (23:14)
[2019-07-03] MEDS ORDERED: GLUCAGON 1 MG VIAL IM PRN (23:14)
[2019-07-03] MEDS ORDERED: ONDANSETRON 4 MG/2 ML VIAL IV PRN (23:14)
[2019-07-03] MEDS ORDERED: SODIUM CHLORIDE 0.9% 500 ML IV STA (23:16)
[2019-07-03] MEDS ORDERED: SODIUM CHLORIDE 0.9% 1,000 ML IV SCH (23:30)
[2019-07-03] MEDS ORDERED: AZITHROMYCIN 500 MG VIAL IV ONE (23:41)
[2019-07-03] MEDS ORDERED: cefTRIAXone 1,000 MG VIAL ONE (23:41)
[2019-07-04] MEDS ORDERED: cefTRIAXone 1,000 MG in SYRINGE 1 EACH IV SCH
[2019-07-04] MEDS ORDERED: AZITHROMYCIN INJ 500 MG in SODIUM CHLORIDE 0.9% 250 ML IV SCH
[2019-07-04] MEDS ORDERED: NOREPINEPHRINE 4 MG/4 ML VIAL IV ONE ×2 (00:57→01:55)
[2019-07-04 00:59] LABS: ABG Base Excess -9.1 MMOL/L (-2.5-2.5); ABG HCO3 17.1 MMOL/L (20-26); ABG Oxygen Saturation 97.6 % (95-100); ABG PCO2 35.9 MM HG (35-48); ABG PH 7.281 (7.35-7.45); ABG TCO2 15.7 MMOL/L (23-27); Allen Test Positive; Pt O2 Delivery Device Other
[2019-07-04 01:08] LABS: Ferritin 6063.6 ng/ml (8-252)
[2019-07-04] MEDS: NOREPINEPHRINE 8 MG in SODIUM CHLORIDE 0.9% 242 ML IV PRN ×3 (01:57→08:31)
[2019-07-04] MEDS: DOPamine 800 MG/250 ML PREMIX IV PRN ×4 (02:13→11:27)
[2019-07-04 03:24] LABS: Basophils % 0.3 % (0.0-0.8); Eosinophils % 0.1 % (0.00-10.9); Hematocrit 29.7 VOL% (35.7-47.0); Hemoglobin 9.4 GM/DL (12.0-16.0); Immature Granulocytes % 0.4 %; Immature Granulocytes Absolute 0.06 #; Lymphocytes # 1.3 10*3/uL (1.4-4.0); Lymphocytes % 8.5 % (21.3-54.2); Mean Corpuscular HGB Conc 31.6 GM/DL (32-36); Mean Corpuscular Volume 97.4 FL (87-102); Mean Platelet Volume 11.2 FL (9.6-12.0); Monocytes % 10.9 % (1.7-12.7); NRBC # 0.03 10*3/uL; Neutrophils % 79.8 % (38.7-73.9); Platelet Count 289 T/CUMM (130-400); Red Blood Count 3.05 MC/CUMM (3.8-5.5); Red Cell Distribution Width 14.6 % (9.3-17.3); White Blood Count 15.4 T/CUMM (4-12)
[2019-07-04 03:31] LABS: Albumin 2.4 G/DL (3.4-5.0); Bilirubin,Direct 0.67 MG/DL (0.0-0.20); Bilirubin,Indirect 0.6 MG/DL (0.0-1.0); Bilirubin,Total 1.3 MG/DL (0.2-1.0)
[2019-07-04 03:32] LABS: Thyroid Stimulating Hormone 1.42 uIU/ml (0.358-3.74)
[2019-07-04 03:34] LABS: Ferritin 6063.6 ng/ml (8-252)
[2019-07-04 03:59] LABS: Albumin 2.3 G/DL (3.4-5.0); Amorphous Crystals,Urine Occasional /HPF (Few); Apearance,Urine CLOUDY (Clear); Bilirubin,Total 1.2 MG/DL (0.2-1.0); Bilirubin,Urine Negative (Negative); Blood, Urine Small mg/dL (Negative); Glucose,Urine (UA) Negative (Negative); Hyaline Casts,Urine 19 /LPF (0-3); Ketones,Urine 5 mg/dL (Negative); Mucus,Urine Few /LPF (Occasional); Nitrite,Urine Negative (Negative); Osmolality,Calculated 282.8 MOS/KG (273-304); Protein,Urine 100 MG/DL; RBC,Urine 10 /HPF (0-4); Squamous Epithelial Cell,Urine Occasional /HPF (0-10); Urine Color Amber (Yellow); Urine Specific Gravity 1.024 (1.001-1.035); WBC,Urine 199 /HPF (0-6)
[2019-07-04 04:01] LABS: Barbiturates Screen,Urine Negative (Negative); Benzodiazepines Screen,Urine Negative (Negative); Cannabinoid Screen,Urine Negative (Negative); Opiate Screen,Urine Positive (Negative); Phencyclidine Screen,Urine Negative (Negative)
[2019-07-04 04:25] LABS: Band Neutrophils 8 % (0-10); Lymphocytes 6 % (20-55); Ovalocytes Slight; Platelet Estimate Adequate; Segmented Neutrophils 68 % (50-85); Total Cells Counted 100
[2019-07-04 04:26] LABS: Hypochromasia Slight; Microcytosis Slight
[2019-07-04] MEDS ORDERED: SODIUM CHLORIDE 0.9% 1,000 ML IV ONE (04:53)
[2019-07-04] MEDS ORDERED: HEPARIN DRIP 25,000 UNITS/500 ML PREMIX IV SCH (05:00)
[2019-07-04] MEDS: INSULIN REGULAR 100 UNIT/ML SUBCUT SCH ×2 (05:32→07:47)
[2019-07-04 06:37] LABS: Hepatitis B Core IgM Quant 0.07 Index; Hepatitis B Surface Ag Quant 0.16 Index; Hepatitis B Surface Ag Result Negative (Negative); Hepatitis C Virus Ab Quant < 0.02 Index; Hepatitis C Virus Ab Result Negative (Negative)
[2019-07-04] MEDS ORDERED: AZITHROMYCIN INJ 500 MG in SODIUM CHLORIDE 0.9% 250 ML IV ONE (08:00)
[2019-07-04] MEDS ORDERED: AZITHROMYCIN 250 MG TABLET PO SCH (09:00)
[2019-07-04] MEDS ORDERED: LORazepam 2 MG/1 ML VIAL IV ONE (09:20)
[2019-07-04] MEDS ORDERED: LORazepam 2 MG/1 ML VIAL ONE (09:22)
[2019-07-04] MEDS ORDERED: NOREPINEPHRINE 16 MG in SODIUM CHLORIDE 0.9% 234 ML IV PRN (11:38)
[2019-07-04] MEDS ORDERED: LORazepam 2 MG/1 ML VIAL IV PRN (11:41)
[2019-07-04] MEDS ORDERED: DOPamine 800 MG in DEXTROSE 5% 230 ML IV PRN (12:18)
[2019-07-04 13:49] VITALS: BP 54/30
[2019-07-04] MEDS ORDERED: AZITHROMYCIN INJ 250 MG in SODIUM CHLORIDE 0.9% 150 ML IV SCH (21:00)
== END 2019-07-04 12:48 | disposition expired | DRG 177 ==
LOC: EDUNIT# → EDBD → N.ED 18:29 → N.EDINP 23:14 → SUATTDRO 23:14 → N.ICU 07-04 00:46
PROVIDERS: ADMIT Internal Medicine; ATTEND Internal Medicine